=== PATIENT | female | born 1960 | race Caucasian/White ===

== ENCOUNTER → 2018-06-27 | Outpatient (REF) ==
[~2018-06-27] MED LIST: ASPIRIN81 MG PO; BP MED; CALCIUM500 M3 OR; FISH OIL1000 MG PO; HYDROCHLOROT12.5 MG PO; IBUPROFEN800 MG PO; LOTREL1 CA4 PO; MELATONIN1 MG OR; METFORMIN500 M1 PO; MULTIVITAL-M OR; PERCOCET 10/31 COMBO PO; VICTOZA PO
== END | disposition home or self-care (01) | DRG 951 ==
LOC: LAB 07:58
PROVIDERS: ATTEND Family Medicine
DX: Z02.6 Encounter for examination for insurance purposes (principal)